=== PATIENT | male | born 1970 | race Caucasian/White ===

== ENCOUNTER 2019-01-23 05:20 | Inpatient (IN) | payer BC ==
[~2019-01-23] VITALS: Ht 188 cm; Wt 145.6 kg
[~2019-01-23 05:20] MED LIST: HYDR25CA26; LISI2.5T47; OME20GT
[2019-01-23] MEDS ORDERED: SODIUM CHLORIDE 0.9% 500 ML IV ONE (06:30)
[2019-01-23] MEDS ORDERED: ACETAMINOPHEN 500 MG TAB PO ONE (06:30)
[2019-01-23 07:54] LABS: Urine Bacteria NONE SEEN /hpf (None Seen); Urine Blood TRACE /uL (Negative); Urine Specific Gravity 1.049 (1.001-1.035); Urine WBC 1 /hpf (0 - 3)
[2019-01-23 08:02] LABS: Basophils # (auto) 0 uL; Basophils % (auto) 0.3 % (0.0-2.0); Eosinophils # (auto) 0 uL; Eosinophils % (auto) 0.1 % (0.0-7.0); Hematocrit 48.5 % (41.0-53.0); Hemoglobin 16.6 g/dL (13.5-17.5); Lymphocytes # (auto) 0.2 uL; Lymphocytes % (auto) 4.3 % (10.0-50.0); Mean Corpuscular Hemoglobin 30.7 pg (28.0-32.0); Mean Corpuscular Hgb Conc. 34.4 g/dL (32.0-36.0); Mean Corpuscular Volume 89.3 fL (80.0-100.0); Monocytes # (auto) 0.3 uL; Monocytes % (auto) 6.9 % (0.0-12.0); Neutrophils # (auto) 4.4 uL; Neutrophils % (auto) 88.4 % (37.0-80.0); Nucleated Red Blood Cells % 0.1 %; Platelet Count (auto) 72 10^3/uL (140-450); Red Blood Cells 5.42 10^6/uL (4.5-5.90); Red Cell Distribution Width 13.5 % (11.8-14.3); White Blood Cell 4.9 10^3/uL (4.4-10.8)
[2019-01-23 08:19] LABS: INR 1.02 (0.9-1.15); Partial Thromboplastin Time 28.1 sec (23.64-32.05)
[2019-01-23 08:33] LABS: Calcium 8.6 mg/dL (8.5-10.1); Potassium 3.5 mmol/L (3.5-5.1)
[2019-01-23 08:35] LABS: BUN/Creatinine Ratio 17.6
[2019-01-23] MEDS ORDERED: ACETAMINOPHEN 325 MG TAB PO ONE (11:45)
[2019-01-23 12:14] LABS: Albumin 3.3 g/dL (3.4-5.0); BUN/Creatinine Ratio 14.6; Calcium 8.4 mg/dL (8.5-10.1); Potassium 3.8 mmol/L (3.5-5.1)
[2019-01-23] MEDS ORDERED: ONDANSETRON HCL 4 MG/2 ML VIAL IV ONE (12:15)
[2019-01-23] MEDS ORDERED: MORPHINE SULF INJ 2 MG/ML SYRINGE 1ML IV ONE (12:15)
[2019-01-23 12:17] LABS: Bilirubin, Total 1.3 mg/dL (0.2-1.0)
[2019-01-23] MEDS ORDERED: CEFTRIAXONE SODIUM 2 GM in D5W 5% 50 ML IV ONE (13:00)
[2019-01-23] MEDS ORDERED: VANCOMYCIN 1GM/250ML 250 ML IV ONE (14:15)
[2019-01-23] MEDS ORDERED: LOPERAMIDE HCL 2 MG CAP PO ONE (15:00)
[2019-01-23] MEDS ORDERED: SODIUM CHLORIDE 0.9% 1,000 ML IV ONE ×2 (16:30→23:15)
[2019-01-23] MEDS ORDERED: MORPHINE SULF INJ 2 MG/ML SYRINGE 1ML IV PRN (16:30)
[2019-01-23] MEDS ORDERED: NITROGLYCERIN 0.4 MG SL TAB SL PRN (16:30)
[2019-01-23] MEDS ORDERED: VANCOMYCIN PER PHARMACY 0 MG IV SCH (16:30)
[2019-01-23] MEDS: KETOROLAC TROMETH 60MG/2ML VIAL IV PRN (16:52)
[2019-01-23] MEDS: ACETAMINOPHEN 325 MG TAB PO PRN ×2 (17:23→21:43)
[2019-01-23] MEDS ORDERED: LORazepam 2MG/ML-1ML VIAL IV ONE (19:30)
[2019-01-23] MEDS ORDERED: LIDOCAINE 1% HCL (LOCAL ANESTH.) INJ 20ML MDV ONE (19:56)
[2019-01-23] MEDS ORDERED: LIDOCAINE 1% HCL (LOCAL ANESTH.) INJ 20ML MDV ID ONE (20:00)
--- NOTE | 2019-01-23 20:30 | NUR ---
OPENING NOTE RECEIVED REPORT FROM MARIANO RN. ASSUMING ROLE OF CARE OF PATIENT AT THIS TIME. PATIENT SHOWING NO SIGN OF DISTRESS, SHORTNESS OF BREATH, AND PATIENT STATES A HEADACHE PAIN AT 10/10. PATIENT WILL BE MEDICATED PER PAIN PROTOCOL AVAILABLE. PATIENT EDUCATED ON PLAN OF CARE FOR THE NIGHT AND PATIENT VERBALIZED UNDERSTANDING. BED LOWERED, CALL LIGHT WITHIN REACH, PATIENT EDUCATED ON NECESSITY OF STAYING FLAT IN BED FOR UP TO 6 HOURS. PATIENT VERBALIZED UNDERSTANDING. PATIENT WILL BE ROUNDED ON EVERY HOUR AND NEEDED.
[2019-01-23] MEDS ORDERED: DEXTROSE (50%) 50ML SYRG IV PRN (21:00)
[2019-01-23 21:12] LABS: Protein, CSF 47.8 mg/dL (15-45)
[2019-01-23 21:40] LABS: CSF White Blood Cells 1 CUMM (0-5)
[2019-01-23] MEDS: ACCU-CHEK COMFORT CURVE STRIP VI SCH (21:43)
[2019-01-23] MEDS: InsuLIN REG 1unit/0.01ml Soln (100units/ml) SC SCH (21:43)
[2019-01-23 22:26] VITALS: BP 136/66
[2019-01-23] MEDS ORDERED: CANA100T OR (22:27)
[2019-01-23] MEDS ORDERED: LISI10TA6 PO (22:27)
[2019-01-23] MEDS ORDERED: OMEP20TA PO (22:27)
[2019-01-23] MEDS ORDERED: METF-370 PO (22:27)
--- NOTE | 2019-01-23 23:07 | NUR ---
PATIENT HAS A HEADACHE PATIENT WAS FOUND STANDING UP TO USE THE BATHROOM BEFORE THE TIME LIMIT WAS UP TO LAY FLAT IN BED AFTER LUMBAR PUNCTURE. PATIENT STATED HAVING A HEADACHE AT 10/10. LUMBAR PUNCTURE WAS INSPECTED PRIOR TO PLACING PATIENT BACK IN TO BED AND NO LEAKAGE NOTED. 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 RECEIVED ORDERS FROM DR. LANDAVERDE. ORDERS PLACED AND WILL CONTINUE TO MONITOR.
[2019-01-23] MEDS ORDERED: HYDROcodone-ACET 5/325MG TAB PO ONE (23:15)
[2019-01-24] MEDS ORDERED: VANCOMYCIN 1GM/250ML 500 ML IV ONE (02:24)
[2019-01-24] MEDS: VANCOMYCIN 1,500 MG in D5W 5% 250 ML IV SCH ×2 (02:35→11:51)
[2019-01-24] MEDS: ACETAMINOPHEN 325 MG TAB PO PRN ×2 (03:45→10:07)
[2019-01-24 05:00] VITALS: BP 108/65
[2019-01-24] MEDS: KETOROLAC TROMETH 60MG/2ML VIAL IV PRN (05:27)
[2019-01-24] MEDS: InsuLIN REG 1unit/0.01ml Soln (100units/ml) SC SCH ×2 (06:34→11:30)
[2019-01-24] MEDS: ACCU-CHEK COMFORT CURVE STRIP VI SCH ×2 (06:34→11:51)
[2019-01-24 07:10] LABS: Hematocrit 40.5 % (41.0-53.0); Hemoglobin 13.9 g/dL (13.5-17.5); Mean Corpuscular Hemoglobin 30.9 pg (28.0-32.0); Mean Corpuscular Hgb Conc. 34.3 g/dL (32.0-36.0); Red Cell Distribution Width 13.7 % (11.8-14.3)
[2019-01-24 07:12] LABS: Calcium 7.9 mg/dL (8.5-10.1); Potassium 3.4 mmol/L (3.5-5.1)
[2019-01-24 07:36] LABS: Basophils % (manual) 0 (0.0-2.0); Blast Cells 0; Eosinophils % (manual) 0 (0-7); Metamyelocytes % 0; Myelocytes % 0; Promyelocytes % 0; Reactive Lymphocytes 0
[2019-01-24 08:25] LABS: Band Neutrophils % (manual) 2; Lymphocytes % (manual) 13 (10.0-50.0); Monocytes % (manual) 15 (0-12)
[2019-01-24 08:42] VITALS: BP 105/52
[2019-01-24 09:45] LABS: Platelet Count (auto) 51 10^3/uL (140-450)
[2019-01-24] MEDS ORDERED: CEFTRIAXONE SODIUM 2 GM in D5W 5% 50 ML IV SCH (10:00)
--- NOTE | 2019-01-24 11:09 | NUR ---
DR. IDALIA Olvera AT BEDSIDE DISCUSSING POC WITH PATIENT. PATIENT VERBALIZED UNDERSTANDING. ROCEPHIN AND VANCOMYCIN TO BE ADMINISTERED BEFORE PATIENT D/C . VANCOMYCIN ADMINISTRATION WILL BE GIVEN EARLY PER M.D. PATIENT D/C ORDERS PLACED
[2019-01-24 11:12] VITALS: BP 105/52
--- NOTE | 2019-01-24 11:19 | NUR ---
I faxed follow up appointment orders to [facility].
[2019-01-24 12:30] VITALS: BP 103/53
--- NOTE | 2019-01-24 14:11 | NUR ---
DISCHARGE Discharge instructions given as ordered. Encourage to follow up with PCP as instructed. All questions and concerns addressed. Patient verbalized understanding.IV removed with catheter intact, pressure dressing applied. Telemetry unit returned to [facility]. Patient taken to vehicle via wheelchair with all personal belongings, accompanied by staff and family member. No distress noted at time of departure.
== END 2019-01-24 14:11 | disposition home or self-care (01) | DRG 864 ==
LOC: ER 05:20 → TELE 16:38 → TELE-WESTW 20:33
PROVIDERS: ADMIT Internal Medicine; ATTEND Internal Medicine
PROC: 009U3ZX Drainage of Spinal Canal, Percutaneous Approach, Diagnostic (ICD-10-PCS; principal; 2019-01-23)
DX: R50.9 Fever, unspecified (principal); Z68.41 Body mass index [BMI] 40.0-44.9, adult; R51 Headache; D69.6 Thrombocytopenia, unspecified; I10 Essential (primary) hypertension; E11.9 Type 2 diabetes mellitus without complications; K21.9 Gastro-esophageal reflux disease without esophagitis; E11.8 Type 2 diabetes mellitus with unspecified complications; E66.01 Morbid (severe) obesity due to excess calories; Z82.49 Family history of ischemic heart disease and other diseases of the circulatory system; Z79.84 Long term (current) use of oral hypoglycemic drugs; Z83.3 Family history of diabetes mellitus
CPT/HCPCS: 36415; 70450; 71045; 80048; 80053; 81001; 82150; 82945; 82962; 83605; 83690; 84157; 85007; 85025; 85027; 85610; 85730; 87040; 87070; 87086; 87205; 89051; 93005; 96361; 96365; 96368; 96375; 99291; G0378; J0696; J1815; J1885; J2001; J2405; J7060